=== PATIENT | female | born 1985 | race African-American/Black ===

== ENCOUNTER 2019-09-11 01:45 | Inpatient (IN) | payer OTHER ==
[2019-09-11 03:36] LABS: BASO % 0.6 % (0-2.0); EOS % 0.1 % (0-4.5); HEMATOCRIT 29.7 % (32.4-45.2); HEMOGLOBIN 9.8 GM/dL (10.7-15.3); LYMPH % 16.2 % (8-40); MCH 26.8 pg (25.7-33.7); MCHC 32.9 g/dl (32.0-36.0); MEAN CELL VOLUME 81.6 fl (80-96); MEAN PLT VOLUME 8.8 fl (7.5-11.1); MONO % 6.9 % (3.8-10.2); NEUT % 76.2 % (42.8-82.8); PLATELET COUNT 241 K/MM3 (134-434); RBC 3.64 M/mm3 (3.60-5.2); RETICULOCYTES 2.81 % (0.5-1.5); WHITE BLOOD COUNT 8.9 K/mm3 (4.0-10.0)
[2019-09-11 03:42] LABS: INR 1.03 (0.83-1.09); PROTHROMBIN TIME (PATIENT) 12.1 SEC (9.7-13.0)
[2019-09-11 03:44] LABS: ACTIVATED PTT 29.9 SECONDS (25.2-36.5)
[2019-09-11 03:51] LABS: BLOOD UREA NITROGEN 6.9 mg/dL (7-18); CALCIUM 8.7 mg/dL (8.5-10.1); CREATININE 0.7 mg/dL (0.55-1.3); POTASSIUM 3.8 mmol/L (3.5-5.1); URIC ACID 6.9 mg/dL (2.6-7.2)
[2019-09-11 04:04] LABS: EPI CELLS 35 /uL (0-25.1); HYALINE CASTS 1 /uL (0-3.1); PH,URINE 6.5 (5.0-8.0); URINE APPEARANCE CLEAR; URINE BACTERIA 157 /uL (0-1359); URINE BILIRUBIN NEGATIVE (NEGATIVE); URINE COLOR YELLOW; URINE GLUCOSE (UA) NEGATIVE (NEGATIVE); URINE KETONE NEGATIVE (NEGATIVE); URINE LEUK ESTERASE NEGATIVE (NEGATIVE); URINE NITRITE NEGATIVE (NEGATIVE); URINE PROTEIN NEGATIVE (NEGATIVE); URINE RBC 4 /uL (0-23.9); URINE WBC 5 /uL (0-25.8)
[2019-09-11] MEDS ORDERED: DEXTROSE 5%-LACTATED RINGERS 1,000 ML IV SCH (04:20)
[2019-09-11] MEDS ORDERED: PROMETHAZINE HCL 25 MG/1 ML VIAL IVPB PRN (04:20)
[2019-09-11] MEDS ORDERED: BUTORPHANOL TARTRATE 1 MG/ML VIAL IVPUSH PRN (04:20)
[2019-09-11] MEDS ORDERED: BUTORPHANOL TARTRATE 1 MG/ML VIAL ONE ×2 (04:48)
[2019-09-11] MEDS ORDERED: PROMETHAZINE HCL 25 MG/1 ML VIAL ONE (04:48)
[2019-09-11 05:37] VITALS: BMI 33.8
--- NOTE | 2019-09-11 08:23 | HP ---
Past Medical History - Primary Care Physician PCP:: DELORES Foy - Admission Chief Complaint: contractions History of Present Illness: previous L/D encounter 09/09 - pt declined recommended admission. YANICK decreased to 6.5, marginal cord insert, grade 3 placenta. History Source: Patient Limitations to Obtaining History: No Limitations - Past Medical History ...: 2 ...Para: 0 ... Weeks Gestation by Dates: 39 ...EDC by Sono: 09/16/19 - Past Surgical History Past Surgical History: Yes: None Hx Myomectomy: No Hx Transabdominal Cerclage: No - Smoking History Smoking history: Never smoked Have you smoked in the past 12 months: No - Alcohol/Substance Use Hx Alcohol Use: No Home Medications - Allergies Allergies/Adverse Reactions: Allergies Allergy/AdvReac Type Severity Reaction Status Date / Time No Known Allergies Allergy Verified 09/11/19 02:43 - Home Medications Home Medications: Ambulatory Orders Pnv No.95/Ferrous Fum/Folic AC [ Vitamin Tablet] 1 each PO DAILY 09/11/19 Review of Systems - Review of Systems Constitutional: reports: No Symptoms Cardiovascular: reports: No Symptoms Respiratory: reports: No Symptoms Gastrointestinal: reports: No Symptoms Genitourinary: reports: No Symptoms Breasts: reports: No Symptoms Reported Integumentary: reports: No Symptoms Neurological: reports: No Symptoms Endocrine: reports: No Symptoms Physical Exam - Maternity Vital Signs: Vital Signs Temperature 98.4 F 09/11/19 08:00 Pulse Rate 98 H 09/11/19 08:00 Respiratory Rate 18 09/11/19 08:00 Blood Pressure 125/77 09/11/19 08:00 O2 Sat by Pulse Oximetry (%) - Abdominal Exam/OB Fundal Height: 40 Presentation: Vertex Contractions: Yes Regularity: Irregular Intensity: Mild/Mod Monitor Mode: External Heart Rate (range): 150 Category: I Accelerations: Uniform - Vaginal Exam/OB Dilatation (cm): 1 Effacement (%): 60 Amniotic Membrane Status: Intact Station: -3 - Physical Exam Edema: Yes Edema: LLE: 2+, RLE: 2+ - Labs Lab Results: CBC, BMP 09/11/19 02:55 09/11/19 02:55 Hemorrhage Risk Assessment - Risk Factors Medium Risk Factors: Yes: Hematocrit < 30% & other High Risk Factors: Yes: None Risk Score: 1 Risk Level: Medium Risk Imaging - Results Ultrasound: Report Reviewed Assessment/Plan 33 yo P0 at term presents with pain in early labor. History of decreased YANICK, marginal cord insert, grade 3 placenta Requesting pain medication. Admission labs
[2019-09-11] MEDS ORDERED: ELECTROLYTE-148 SOLN 1,000 ML IV SCH ×2 (08:30→10:00)
--- NOTE | 2019-09-11 09:50 | PN ---
Progress Note (short form) - Note Progress Note: Pt c/o mild UC VSS, afebrile VE - 3 cm, 80%, -1 vtx, IM EFM 140 bpm, reactive, cat 1, no decelerations TOCO UC irregular A/P 39 weeks Latent phase of labor Marginal insertion of the cord Stable Plan: Pitocin augmentation
[2019-09-11] MEDS ORDERED: OXYTOCIN 30 UNITS in 0.9% NS 30 UNIT/500 ML INFUS.BAG IVPB ONE ×2 (09:54→17:48)
[2019-09-11] MEDS ORDERED: OXYTOCIN 30 UNITS in 0.9% NS 30 UNIT/500 ML INFUS.BAG IVPB SCH (10:00)
--- NOTE | 2019-09-11 13:30 | PN ---
Progress Note (short form) - Note Progress Note: Pt c/o painful UC irreg VSS, afebrile VE - 4 cm, 80%, -1 AROM - scanty AF IFM apply Baseline 140 bpm, reactive, cat 1 no decel TOCO UC irreg, q 4-5 min A/P Pitocin augmentation Consider epidural anesthesia
[2019-09-11] MEDS ORDERED: PCA PUMP NR ONE ×2 (13:31→19:02)
[2019-09-11] MEDS ORDERED: FENTANYL/BUPIVACAINE/NS/PF - PCEA - 50 ML DISP.SYRIN EP ONE ×2 (13:31→19:04)
[2019-09-11] MEDS ORDERED: BUPIVACAINE HCL/PF 0.25% (2.5MG/ML) 10 ML VIAL ONE (13:51)
[2019-09-11] MEDS ORDERED: LIDO 2%/EPI 1:200000 PRESRVFRE (20 ML SDVIAL) ONE (13:51)
[2019-09-11] MEDS: FENTANYL/BUPIVACAINE/NS/PF - PCEA - 50 ML DISP.SYRIN EP SCH (14:15)
[2019-09-11] MEDS ORDERED: NALOXONE HCL 0.4 MG/ML VIAL IVPUSH PRN (14:18)
--- NOTE | 2019-09-11 15:20 | PN ---
Progress Note (short form) - Note Progress Note: Pt is comfortable after epidural anesthesia VSS, afebrile VE - 4 cm, 80%, -1 vtx, IFM baseline 140 bpm, reactive, cat 1, no decel TOCO UC q 3 min A/P continue Pitocin augmentation Close observation
--- NOTE | 2019-09-11 17:57 | PN ---
Progress Note (short form) - Note Progress Note: Pt c/o pelvic pressure and urge to push VSS, afebrile VE - 4 cm, 80%, -1 vtx IFM baseline 150 bpm, reactive cat 1 no decel TOCO Irreg UC q 3-5 min A/P pitocin augmentation Close observation
[2019-09-11] MEDS ORDERED: AMPICILLIN - 2 GM in SODIUM CHLORIDE 100 ML IVPB ONE (18:10)
[2019-09-11] MEDS ORDERED: AMPICILLIN SODIUM 2 GM VIAL ONE (18:10)
[2019-09-11] MEDS: ACETAMINOPHEN 325 MG TABLET (FP) PO PRN (18:15)
--- NOTE | 2019-09-11 18:15 | PN ---
Progress Note (short form) - Note Progress Note: Temp 100.8 F Change of baseline to 160 bpm A/p R/O chorioamnionitis Ampicillin 2 gm IVPB x 1 Tylenol 650 mg po x 1 Hydration
[2019-09-11] MEDS ORDERED: CITRIC ACID/SODIUM CITRATE 30 ML UNIT-DOSE CUP PO ONE (19:30)
[2019-09-11] MEDS ORDERED: ceFAZolin 2 GRAM PREMIX BAG IVPB ONE (19:30)
[2019-09-11] MEDS ORDERED: OXYTOCIN 20 UNITS in 0.9% NS 20 UNIT/1,000 ML INFUS.BAG IV ONE ×2 (19:34→22:42)
--- NOTE | 2019-09-11 19:37 | PN ---
Progress Note (short form) - Note Progress Note: Pt c/o chills T max 100F Baseline 180 bpm, no decel TOCO cesarian VE - 4 cm, 80%, -1 vtx Discussed at length cesarian delivery; risks, benefits, alternatives well understood by pt and her partner. All questions answered. Pt singed consent form Assess: 33 yo G P0 @ 39 weeks Chorioamnionitis Arrest of dilatation Ancef 2 gm Bicitra
[2019-09-11] MEDS ORDERED: PHENYLEPHRINE HCL 10 MG/1 ML SINGLE DOSE VIAL ONE (19:39)
[2019-09-11] MEDS ORDERED: ceFAZolin SODIUM 1 GM VIAL ONE (19:39)
[2019-09-11] MEDS ORDERED: SODIUM CHLORIDE 0.9% P/F 10 ML VIAL IJ ONE (19:42)
[2019-09-11] MEDS ORDERED: ONDANSETRON 4 MG/2 ML VIAL IVPUSH PRN (20:33)
--- NOTE | 2019-09-11 21:08 | OP ---
Operative Note - Note: Operative Date: 09/11/19 Pre-Operative Diagnosis: 33 yo @ 39 weeks Arrest of dilatation Chorioamnionitis Operation: Primary c/s via Pfannenstiel Incision Findings: Baby boy born 9/9 Cord gases and blood collected Placenta and membranes complete Cultures collected - maternal and side Placenta and membranes sent to pathology Post-Operative Diagnosis: Same as Pre-op Surgeon: Ellen Meeks Stock Checkerer: Colton Carrillo Anesthesiologist/HAMMER OPERATOR: Ni Barajas Anesthesia: Epidural Specimens Removed: placenta and membranes, cord gases and blood Estimated Blood Loss (mls): 800 Fluid Volume Replaced (mls): 2,000 Operative Report Dictated: No
[2019-09-11] MEDS ORDERED: METHYLERGONOVINE MALEATE 0.2 MG/1 ML AMP IM PRN (21:09)
[2019-09-11] MEDS ORDERED: IBUPROFEN 600 MG TABLET (FP) PO PRN (21:09)
[2019-09-11] MEDS: OXYTOCIN 20 UNITS in 0.9% NS 20 UNIT/1,000 ML INFUS.BAG IV SCH (23:20)
[2019-09-12] MEDS ORDERED: PCA PUMP NR ONE (00:12)
[2019-09-12] MEDS: IBUPROFEN 600 MG TABLET (FP) PO PRN ×4 (02:20→20:10)
[2019-09-12] MEDS: ACETAMINOPHEN 325 MG TABLET (FP) PO PRN ×4 (02:20→20:09)
[2019-09-12] MEDS: CLINDAMYCIN 600MG PREMIX IVPB 600 MG/50 ML BAG IVPB SCH ×3 (02:20→18:09)
[2019-09-12] MEDS: CEFAZOLIN 1 GM/D5W 1 GM/50 ML BAG IVPB SCH ×3 (04:39→20:11)
[2019-09-12 07:38] LABS: BASO % 0.1 % (0-2.0); EOS % 0.1 % (0-4.5); HEMATOCRIT 24.1 % (32.4-45.2); HEMOGLOBIN 7.8 GM/dL (10.7-15.3); LYMPH % 15.8 % (8-40); MCH 26.9 pg (25.7-33.7); MCHC 32.4 g/dl (32.0-36.0); MEAN CELL VOLUME 83.1 fl (80-96); MEAN PLT VOLUME 8.5 fl (7.5-11.1); MONO % 6.6 % (3.8-10.2); NEUT % 77.4 % (42.8-82.8); PLATELET COUNT 173 K/MM3 (134-434); RDW 15.6 % (11.6-15.6); WHITE BLOOD COUNT 10.2 K/mm3 (4.0-10.0)
[2019-09-12] MEDS: SIMETHICONE 80 MG TAB.CHEW (FP) PO PRN ×3 (08:13→20:09)
[2019-09-12] MEDS: OXYTOCIN 20 UNITS in 0.9% NS 20 UNIT/1,000 ML INFUS.BAG IV SCH (08:14)
--- NOTE | 2019-09-12 09:48 | PN ---
Post Progress Note Post Day: 1 Type of Delivery: Primary C/S Vital Signs: Vital Signs Temperature 98.5 F 09/12/19 05:45 Pulse Rate 71 09/12/19 05:45 Respiratory Rate 20 09/12/19 05:45 Blood Pressure 134/80 09/12/19 05:45 O2 Sat by Pulse Oximetry (%) 100 09/11/19 23:05 Breast Exam: Yes: Soft Uterus: Yes: Fundus Firm Incision: Yes: Dressing dry and intact Abdomen/GI: Yes: Abdomen soft, Tolerating PO Lochia: Yes: Rubra Lochia, amount: Small Extremities: Yes: Calves non-tender - Labs Labs: CBC WBC 10.2 K/mm3 (4.0-10.0) H 09/12/19 06:47 RBC 2.90 M/mm3 (3.60-5.2) L 09/12/19 06:47 Hgb 7.8 GM/dL (10.7-15.3) L 09/12/19 06:47 Hct 24.1 % (32.4-45.2) L D 09/12/19 06:47 MCV 83.1 fl (80-96) 09/12/19 06:47 MCH 26.9 pg (25.7-33.7) 09/12/19 06:47 MCHC 32.4 g/dl (32.0-36.0) 09/12/19 06:47 RDW 15.6 % (11.6-15.6) 09/12/19 06:47 Plt Count 173 K/MM3 (134-434) D 09/12/19 06:47 MPV 8.5 fl (7.5-11.1) 09/12/19 06:47 Absolute Neuts (auto) 7.9 K/mm3 (1.5-8.0) 09/12/19 06:47 Neutrophils % 77.4 % (42.8-82.8) 09/12/19 06:47 Lymphocytes % 15.8 % (8-40) 09/12/19 06:47 Monocytes % 6.6 % (3.8-10.2) 09/12/19 06:47 Eosinophils % 0.1 % (0-4.5) 09/12/19 06:47 Basophils % 0.1 % (0-2.0) 09/12/19 06:47 Nucleated RBC % 0 % (0-0) 09/12/19 06:47 Retic Count 2.81 % (0.5-1.5) H 09/11/19 02:55 Haptoglobin 89 mg/dL (33-278) 09/11/19 02:55 Assessment/Plan POD#1, hemodynamically stable D/C potts Ambulation encouraged Advance diet as tolerated Pain management Monitor vitals Consider discharge home in AM
[2019-09-12] MEDS ORDERED: oxyCODONE HCL 5 MG TABLET PO PRN (10:09)
--- NOTE | 2019-09-12 11:34 | PN ---
Progress Note (short form) - Note Progress Note: Post op day#1.s/p C section under epidural anesthesia with duramorph u neventful.Patient stable and has little pain for which she is on medication.No any anesthesia related problem.Patient Dc from the anesthesia care.
[2019-09-12] MEDS ORDERED: BISACODYL 10 MG SUPP.RECT RC PRN (21:12)
[2019-09-13] MEDS: IBUPROFEN 600 MG TABLET (FP) PO PRN ×3 (04:22→22:22)
[2019-09-13] MEDS: SIMETHICONE 80 MG TAB.CHEW (FP) PO PRN ×2 (04:23→13:37)
[2019-09-13] MEDS: ACETAMINOPHEN 325 MG TABLET (FP) PO PRN ×3 (04:23→22:23)
[2019-09-13] MEDS: FENTANYL/BUPIVACAINE/NS/PF - PCEA - 50 ML DISP.SYRIN EP SCH (08:46)
--- NOTE | 2019-09-13 09:36 | PN ---
Progress Note (short form) - Note Progress Note: pt. states feels better today overall. less pain. tolerating diet. ambulating well. +flatus no fever or chills some incisional pain - controlled w meds. vss - af abd: soft, nd, +bs inc: c/d/i w fredis ext: 1+ edema b/l. no calf tenderness b/l a/p pod 2 s/p for arrest and chorio. pt. improving. dulcolax offered , pt. declined. states will ambulate anemia noted. pt. reports hx anemia for which she takes iron at home. no symptoms. will rpt cbc in am pt. prefers to go home tomorrow.
[2019-09-14] MEDS: IBUPROFEN 600 MG TABLET (FP) PO PRN ×2 (05:57→12:03)
[2019-09-14] MEDS: ACETAMINOPHEN 325 MG TABLET (FP) PO PRN ×2 (05:58→12:03)
[2019-09-14 07:31] LABS: BASO % 0.2 % (0-2.0); EOS % 0.6 % (0-4.5); HEMATOCRIT 23.6 % (32.4-45.2); HEMOGLOBIN 7.9 GM/dL (10.7-15.3); LYMPH % 17.8 % (8-40); MCH 27.3 pg (25.7-33.7); MCHC 33.4 g/dl (32.0-36.0); MEAN CELL VOLUME 81.7 fl (80-96); MEAN PLT VOLUME 8.3 fl (7.5-11.1); MONO % 4.6 % (3.8-10.2); NEUT % 76.8 % (42.8-82.8); PLATELET COUNT 185 K/MM3 (134-434); RBC 2.89 M/mm3 (3.60-5.2); RDW 16.1 % (11.6-15.6); WHITE BLOOD COUNT 8.8 K/mm3 (4.0-10.0)
--- NOTE | 2019-09-14 09:35 | DS ---
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 Vital Signs: Vital Signs Temperature 98.2 F 09/13/19 22:00 Pulse Rate 78 09/13/19 22:00 Respiratory Rate 20 09/13/19 22:00 Blood Pressure 149/76 09/13/19 22:00 O2 Sat by Pulse Oximetry (%) 98 09/13/19 21:00 Constitutional: Yes: Well Nourished Eyes: Yes: WNL HENT: Yes: WNL Neck: Yes: WNL Cardiovascular: Yes: WNL Respiratory: Yes: WNL ...Rectal Exam: Yes: Deferred Internal Exam Deferred: Yes Uterus: Yes: Firm ....Post : Yes: Uterus non-tender, Slight lochia serosa Labs: CBC, BMP 09/14/19 06:55 09/11/19 02:55 Delivery - Delivery Section: Primary Type of Anesthesia: Epidural Episiotomy/Laceration: None EBL (cc): 800 Delivery, Single - Stages of Labor Date 1st Stage Initiatied: 09/10/19 Time 1st Stage Initiated: 05:00 Date of Delivery: 09/11/19 Time of Delivery: 20:09 Time Placenta Delivered: 20:11 - Condition of Infant 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 chorio Discharge Summary Problems reviewed: Yes Reason For Visit: LABOR ADMIT oligo; anemia Procedures: Principal: primary c section Hospital Course: anemia Plan of Treatment: home Condition: Good - Instructions Diet, Activity, Other Instructions: regular Disposition: HOME - Home Medications Comprehensive Discharge Medication List: Ambulatory Orders Pnv No.95/Ferrous Fum/Folic AC [ Vitamin Tablet] 1 each PO DAILY 09/11/19 home; RTO for fredis removal Prescription Drug Monitoring Program (I-STOP) results: I-STOP reviewed and no issues identified (home on Motrin)
[2019-09-14 11:52] VITALS: BP 136/81; PULSE 79; TEMP 98
[2019-09-14] MEDS: SIMETHICONE 80 MG TAB.CHEW (FP) PO PRN (12:02)
--- NOTE | 2019-09-15 14:49 | PATH ---
Surgical Pathology Report Patient Name: JOSE PATEL Med. Rec. #: [id number] /Age/Gender: 1985 (Age: 33) / F Account: [id number] Location: [facility] OBS/MANAGED CARE NURSE Taken: 09/11/2019 Received: 09/12/2019 Reported: 09/15/2019 Physicians: Ellen Meeks M.D. Specimen(s) Received PLACENTA Clinical History , 39.2 weeks' gestation, maternal temperature, tachycardia Arrest of dilatation, chorioamnionitis Final Diagnosis PLACENTA, SECTION: 501 G THIRD TRIMESTER PLACENTA WITH FOCAL MILD ACUTE CHORIOAMNIONITIS AND MECONIUM-LADEN MACROPHAGES. TRIVASCULAR UMBILICAL CORD. Electronically Signed Areli Vizcaino M.D. Gross Description The specimen is received fresh labeled placenta and is a 501 gram, 17.5 x 14.5 x 2.4 cm. placenta with attached membranes and umbilical cord. The attached membranes are varghese, translucent with focal opacities and insert marginally. The umbilical cord measures 12.5 cm. in length and averages 1.1 cm. in diameter. The cord inserts at the margin. No true knots or strictures are identified. Cut surface of the umbilical cord reveals 3 vessels. The surface is betancourt green, meconium stained with minimal fibrin deposition and appropriate caliber vessels. The maternal surface is red-brown and intact. Sectioning reveals red-brown, spongy parenchyma. No lesions are identified. Finisher Tailor Apprentice sections are submitted in three cassettes as follows: 1- membrane rolls and umbilical cord; 2-3- full thickness sections of placenta. /09/12/2019 [facility]/09/12/2019
--- NOTE | 2019-09-25 12:35 | OP ---
DATE OF OPERATION: 09/11/2019 PREOPERATIVE DIAGNOSIS: [age] years old, G1, para 0 at 39 weeks, arrest of dilatation, chorioamnionitis. POSTOPERATIVE DIAGNOSIS: [age] years old, G1, para 0 at 39 weeks, arrest of dilatation, chorioamnionitis. PROCEDURE: Primary low transverse section via Pfannenstiel incision. SURGEON: Daniela Alva MD ETL BI DEVELOPER: MILIND Abarca ANESTHESIA: EVELYN Cardoso, epidural. SPECIMEN: Placenta and membrane, cord gas and blood. ESTIMATED BLOOD LOSS: 800 mL. FLUIDS: Lactated Ringer's 1500 mL. URINE OUTPUT: Clear urine, 200 mL, at the end of the procedure. INDICATION: [age] years old, G1, para 0, 39 weeks, arrest of dilatation, suspected prolonged premature rupture of membranes, chorioamnionitis. FINDINGS: Delivery of baby boy born, 9, 9. Cord gases and blood collected and sent. Placenta and membrane complete sent to pathology. Culture collected maternal and side. DESCRIPTION OF PROCEDURE: The patient was taken to the operating room where epidural anesthesia was found to be adequate. She was then prepped and draped in the usual sterile fashion in dorsal supine position with a leftward tilt. A Pfannenstiel skin incision was made with the scalpel and carried through to the underlayer of fascia with the Bovie. The fascia was then incised in the midline and the incision extended laterally with Robles scissors. The superior and inferior aspects of fascial incision were grasped with Renee clamp, elevated, and the underlying rectus muscle was dissected off bluntly. The rectus muscles were in the midline, peritoneum visualized and grasped with pickups and entered sharply with Metzenbaum scissors. This incision was extended superiorly and inferiorly, with good visualization of the bladder. The bladder blade was then inserted, the vesicouterine peritoneum identified, grasped with pickups, and entered sharply with Metzenbaum scissors. The incision was then extended laterally and the bladder flap created digitally. The bladder blade was then reinserted and the lower uterine segment incised in transverse fashion with a scalpel. The uterine incision was then extended laterally with bandage scissors. The bladder blade was then removed and the 's head delivered atraumatically. The nose and mouth were suctioned and the cord clamped and cut. The was handed off to the waiting warpman. Cord gases were sent. Placenta and membrane removed manually, the uterus exteriorized and cleared of all clots and debris. Uterine incision was repaired with 1-0 chromic in a running locked fashion. Second layer of the same suture was used to obtain excellent hemostasis. Bladder flap was repaired with 2-0 Vicryl and the uterus returned to the abdomen. The gutters were cleared of all clots and the peritoneum closed with 2-0 chromic. The fascia was reapproximated with 0 Vicryl in a running fashion, and the skin was closed with 3-0 Vicryl in subcuticular fashion. The patient tolerated the procedure well. Sponge, lap, needle counts were correct x2. Patient was taken to recovery room in stable condition. DANIELA ALVA MD RP/[id number]
== END 2019-09-14 15:00 | disposition home or self-care (01) | DRG 540 ==
LOC: JDEL 01:45 → JLDR 04:20 → J3W 23:05
PROVIDERS: ADMIT Obstetrics & Gynecology; ATTEND Obstetrics & Gynecology
PROC: 10907ZC Drainage of Amniotic Fluid, Therapeutic from Products of Conception, Via Natural or Artificial Opening (ICD-10-PCS; principal; 2019-09-11)
PROC: 10D00Z1 Extraction of Products of Conception, Low, Open Approach (ICD-10-PCS; 2019-09-11)
DX: O41.1230 Chorioamnionitis, third trimester, not applicable or unspecified (principal); O75.2 Pyrexia during labor, not elsewhere classified; Z3A.39 39 weeks gestation of pregnancy; Z37.0 Single live birth; O77.0 Labor and delivery complicated by meconium in amniotic fluid; O62.1 Secondary uterine inertia; O99.03 Anemia complicating the puerperium; D64.9 Anemia, unspecified; O43.893 Other placental disorders, third trimester; O43.123 Velamentous insertion of umbilical cord, third trimester
CPT/HCPCS: 36415; 36600; 59025; 80048; 81003; 82803; 82977; 83010; 84450; 84460; 84550; 85025; 85044; 85610; 85730; 86780; 86850; 86900; 86901; 87070; 87205; 88307-TC; U0003